=== PATIENT | female | born 1970 | race Two or more races ===

== ENCOUNTER 2023-02-11 17:10 | Inpatient (IN) | payer MEDICARE, OTHER ==
[~2023-02-11] VITALS: Ht 154.9 cm; Wt 68.0 kg
[2023-02-11 21:15] VITALS: BP 113/69; TEMP 97.8; O2SAT 100
[2023-02-11] MEDS ORDERED: COGENTIN PO (21:56)
[2023-02-11] MEDS ORDERED: LURA40TA PO (21:56)
[2023-02-11] MEDS ORDERED: HALO100A2 IM (21:56)
[2023-02-11] MEDS ORDERED: ATOR20TA PO (21:56)
[2023-02-11] MEDS ORDERED: SITA100T PO (21:56)
[2023-02-11] MEDS ORDERED: METF-440 PO (21:56)
[2023-02-11] MEDS ORDERED: OLAN5TAB3 PO (21:56)
[2023-02-11] MEDS ORDERED: clonazePAM 0.5 MG TABLET PO PRN (22:00)
[2023-02-11] MEDS ORDERED: MAGNESIUM HYDROXIDE 30 ML UDC PO PRN (22:00)
[2023-02-11] MEDS ORDERED: BLOOD SUGAR DIAGNOSTIC 1 EACH STRIP IN ONE (22:00)
[2023-02-11] MEDS ORDERED: TEMAZEPAM 7.5 MG CAPSULE PO PRN (22:00)
[2023-02-11] MEDS ORDERED: ACETAMINOPHEN 325 MG TABLET PO PRN (22:00)
[2023-02-11] MEDS ORDERED: MAG HYDROX/AL HYDROX/SIMETH 30 ML UDC PO PRN (22:00)
[2023-02-12 07:25] LABS: ALBUMIN 3.9 g/dL (3.4-5.0); BILIRUBIN,TOTAL 0.5 mg/dL (0.2-1.0); CALCIUM, SERUM 9.3 mg/dL (8.5-10.1); CREATININE 0.5 mg/dL (0.6-1.3); POTASSIUM 3.4 mmol/L (3.5-5.1); TOTAL PROTEIN, SERUM 7.9 g/dL (6.4-8.2)
[2023-02-12] MEDS ORDERED: BENZ1TAB7 PO (07:42)
[2023-02-12 08:00] VITALS: BP 121/65; TEMP 98.6; O2SAT 100
[2023-02-12] MEDS: BENZTROPINE MESYLATE (1 MG) 1 MG TABLET PO SCH (09:36)
[2023-02-12] MEDS: OLANZAPINE 5 MG TABLET PO SCH ×2 (12:07→17:16)
[2023-02-12] MEDS ORDERED: DEXTROSE 50%-WATER 50 ML DISP.SYRIN IV PRN (15:30)
[2023-02-12 16:00] VITALS: BP 143/72; TEMP 98; O2SAT 99
[2023-02-12] MEDS: METFORMIN 500 MG TABLET PO SCH (17:16)
[2023-02-12] MEDS: INSULIN REGULAR, HUMAN 100 UNIT/ML 3 ML VIAL SQ PRN ×2 (17:55→21:48)
[2023-02-12] MEDS: BLOOD SUGAR DIAGNOSTIC 1 EACH STRIP IN SCH ×2 (17:56→21:42)
[2023-02-12 21:32] VITALS: BP 105/67; TEMP 98.1; O2SAT 100
[2023-02-12] MEDS: ATORVASTATIN 10 MG TABLET PO SCH (21:35)
[2023-02-12] MEDS ORDERED: OLANZAPINE 5 MG TABLET PO SCH (22:00)
[2023-02-12] MEDS ORDERED: INSULIN GLARGINE, 100 UNIT/ML CARTRIDGE SQ SCH (22:00)
[2023-02-13] MEDS: BLOOD SUGAR DIAGNOSTIC 1 EACH STRIP IN SCH ×4 (08:30→21:47)
[2023-02-13] MEDS: OLANZAPINE 5 MG TABLET PO SCH ×2 (08:31→17:19)
[2023-02-13] MEDS: BENZTROPINE MESYLATE (1 MG) 1 MG TABLET PO SCH (08:31)
[2023-02-13] MEDS: METFORMIN 500 MG TABLET PO SCH ×2 (08:31→17:19)
[2023-02-13] MEDS: LINAGLIPTIN 5 MG TABLET PO SCH (08:31)
[2023-02-13 09:27] VITALS: BP 108/70; TEMP 98.7; O2SAT 100
[2023-02-13 16:00] VITALS: BP 140/69; TEMP 97.9; O2SAT 99
[2023-02-13 20:27] VITALS: BP 118/70; TEMP 98.1; O2SAT 100
[2023-02-13] MEDS: ATORVASTATIN 10 MG TABLET PO SCH (21:33)
[2023-02-13] MEDS: INSULIN GLARGINE, 100 UNIT/ML CARTRIDGE SQ SCH (21:49)
[2023-02-13] MEDS: INSULIN REGULAR, HUMAN 100 UNIT/ML 3 ML VIAL SQ PRN (21:51)
[2023-02-14] MEDS: BLOOD SUGAR DIAGNOSTIC 1 EACH STRIP IN SCH ×4 (07:44→21:35)
[2023-02-14 08:00] VITALS: BP 130/74; TEMP 97.5; O2SAT 99
[2023-02-14] MEDS: LINAGLIPTIN 5 MG TABLET PO SCH (08:25)
[2023-02-14] MEDS: BENZTROPINE MESYLATE (1 MG) 1 MG TABLET PO SCH (08:25)
[2023-02-14] MEDS: OLANZAPINE 5 MG TABLET PO SCH ×2 (08:25→16:09)
[2023-02-14] MEDS: METFORMIN 500 MG TABLET PO SCH ×2 (08:25→16:09)
[2023-02-14 16:00] VITALS: BP 117/67; TEMP 98.1; O2SAT 100
[2023-02-14 20:00] VITALS: BP 139/79; TEMP 97.5; O2SAT 100
[2023-02-14] MEDS: ATORVASTATIN 10 MG TABLET PO SCH (21:34)
[2023-02-14] MEDS: INSULIN GLARGINE, 100 UNIT/ML CARTRIDGE SQ SCH (21:35)
[2023-02-15] MEDS: BLOOD SUGAR DIAGNOSTIC 1 EACH STRIP IN SCH ×4 (07:30→21:38)
[2023-02-15 08:00] VITALS: BP 116/66; TEMP 97.8; O2SAT 99
[2023-02-15] MEDS: BENZTROPINE MESYLATE (1 MG) 1 MG TABLET PO SCH (08:15)
[2023-02-15] MEDS: OLANZAPINE 5 MG TABLET PO SCH ×2 (08:15→21:37)
[2023-02-15] MEDS: LINAGLIPTIN 5 MG TABLET PO SCH (08:15)
[2023-02-15] MEDS: METFORMIN 500 MG TABLET PO SCH ×3 (08:15→17:43)
[2023-02-15 16:00] VITALS: BP 134/72; TEMP 97.8; O2SAT 100
[2023-02-15 20:00] VITALS: BP 111/79; TEMP 98; O2SAT 100
[2023-02-15] MEDS: ATORVASTATIN 10 MG TABLET PO SCH (21:36)
[2023-02-15] MEDS: INSULIN GLARGINE, 100 UNIT/ML CARTRIDGE SQ SCH (21:38)
[2023-02-16] MEDS: BLOOD SUGAR DIAGNOSTIC 1 EACH STRIP IN SCH ×4 (07:30→21:47)
[2023-02-16 08:00] VITALS: BP 115/65; TEMP 97.8; O2SAT 98
[2023-02-16] MEDS: METFORMIN 500 MG TABLET PO SCH ×3 (08:09→16:42)
[2023-02-16] MEDS: LINAGLIPTIN 5 MG TABLET PO SCH (08:09)
[2023-02-16] MEDS: BENZTROPINE MESYLATE (1 MG) 1 MG TABLET PO SCH (08:09)
[2023-02-16] MEDS: OLANZAPINE 5 MG TABLET PO SCH ×2 (08:09→21:48)
[2023-02-16 16:00] VITALS: BP 111/66; TEMP 97.9; O2SAT 98
[2023-02-16 20:00] VITALS: BP 121/69; TEMP 97.6; O2SAT 97
[2023-02-16] MEDS: ATORVASTATIN 10 MG TABLET PO SCH (21:48)
[2023-02-16] MEDS: INSULIN GLARGINE, 100 UNIT/ML CARTRIDGE SQ SCH (21:49)
[2023-02-17] MEDS: BLOOD SUGAR DIAGNOSTIC 1 EACH STRIP IN SCH ×4 (07:30→22:00)
[2023-02-17 08:00] VITALS: BP 105/61; TEMP 97.8; O2SAT 98
[2023-02-17] MEDS: OLANZAPINE 5 MG TABLET PO SCH ×2 (08:38→22:02)
[2023-02-17] MEDS: BENZTROPINE MESYLATE (1 MG) 1 MG TABLET PO SCH (08:39)
[2023-02-17] MEDS: METFORMIN 500 MG TABLET PO SCH ×2 (08:43→16:26)
[2023-02-17] MEDS: LINAGLIPTIN 5 MG TABLET PO SCH (08:43)
[2023-02-17 16:00] VITALS: BP 109/58; TEMP 97.8; O2SAT 100
[2023-02-17 20:19] VITALS: BP 107/56; TEMP 98.6; O2SAT 98
[2023-02-17] MEDS: INSULIN GLARGINE, 100 UNIT/ML CARTRIDGE SQ SCH (22:00)
[2023-02-17] MEDS: ATORVASTATIN 10 MG TABLET PO SCH (22:02)
[2023-02-18] MEDS: BLOOD SUGAR DIAGNOSTIC 1 EACH STRIP IN SCH ×4 (07:30→21:27)
[2023-02-18 08:00] VITALS: BP 119/68; TEMP 98.1; O2SAT 98
[2023-02-18] MEDS: LINAGLIPTIN 5 MG TABLET PO SCH (08:23)
[2023-02-18] MEDS: BENZTROPINE MESYLATE (1 MG) 1 MG TABLET PO SCH (08:23)
[2023-02-18] MEDS: OLANZAPINE 5 MG TABLET PO SCH ×2 (08:23→21:23)
[2023-02-18] MEDS: METFORMIN 500 MG TABLET PO SCH ×2 (08:23→17:00)
[2023-02-18 16:00] VITALS: BP 112/78; TEMP 98.1; O2SAT 99
[2023-02-18 19:46] VITALS: BP 115/78; TEMP 97.9; O2SAT 100
[2023-02-18] MEDS: ATORVASTATIN 10 MG TABLET PO SCH (21:23)
[2023-02-18] MEDS: INSULIN GLARGINE, 100 UNIT/ML CARTRIDGE SQ SCH (21:27)
[2023-02-19] MEDS: BLOOD SUGAR DIAGNOSTIC 1 EACH STRIP IN SCH ×4 (07:30→21:26)
[2023-02-19 08:00] VITALS: BP 124/70; TEMP 98.7; O2SAT 99
[2023-02-19] MEDS: OLANZAPINE 5 MG TABLET PO SCH ×2 (08:30→21:26)
[2023-02-19] MEDS: LINAGLIPTIN 5 MG TABLET PO SCH (08:30)
[2023-02-19] MEDS: METFORMIN 500 MG TABLET PO SCH ×2 (08:37→17:00)
[2023-02-19] MEDS: BENZTROPINE MESYLATE (1 MG) 1 MG TABLET PO SCH (08:38)
[2023-02-19 16:00] VITALS: BP 114/59; TEMP 98.1; O2SAT 100
[2023-02-19 20:14] VITALS: BP 114/70; TEMP 98.8; O2SAT 97
[2023-02-19] MEDS: INSULIN GLARGINE, 100 UNIT/ML CARTRIDGE SQ SCH (21:26)
[2023-02-19] MEDS: ATORVASTATIN 10 MG TABLET PO SCH (21:26)
[2023-02-20] MEDS: BLOOD SUGAR DIAGNOSTIC 1 EACH STRIP IN SCH ×4 (07:30→21:41)
[2023-02-20 08:00] VITALS: BP 107/63; TEMP 98.1; O2SAT 100
[2023-02-20] MEDS: BENZTROPINE MESYLATE (1 MG) 1 MG TABLET PO SCH (08:02)
[2023-02-20] MEDS: OLANZAPINE 5 MG TABLET PO SCH ×2 (08:03→21:27)
[2023-02-20] MEDS: METFORMIN 500 MG TABLET PO SCH ×2 (08:03→16:00)
[2023-02-20] MEDS: LINAGLIPTIN 5 MG TABLET PO SCH (08:03)
[2023-02-20 16:00] VITALS: BP 122/68; TEMP 97.7; O2SAT 98
[2023-02-20 20:16] VITALS: BP 125/69; TEMP 98.4; O2SAT 100
[2023-02-20] MEDS: ATORVASTATIN 10 MG TABLET PO SCH (21:27)
[2023-02-20] MEDS: INSULIN REGULAR, HUMAN 100 UNIT/ML 3 ML VIAL SQ PRN (21:43)
[2023-02-20] MEDS: INSULIN GLARGINE, 100 UNIT/ML CARTRIDGE SQ SCH (21:54)
[2023-02-21] MEDS: BLOOD SUGAR DIAGNOSTIC 1 EACH STRIP IN SCH (07:30)
[2023-02-21 08:00] VITALS: BP 129/70; TEMP 98.2; O2SAT 99
[2023-02-21] MEDS: METFORMIN 500 MG TABLET PO SCH (08:47)
[2023-02-21] MEDS: LINAGLIPTIN 5 MG TABLET PO SCH (08:47)
[2023-02-21] MEDS: OLANZAPINE 5 MG TABLET PO SCH (08:47)
[2023-02-21] MEDS: BENZTROPINE MESYLATE (1 MG) 1 MG TABLET PO SCH (08:53)
== END 2023-02-21 11:15 | disposition home or self-care (01) | DRG 885 ==
LOC: GPS 21:09
PROVIDERS: ADMIT Nurse Practitioner Psychiatric/Mental Health; ATTEND Nurse Practitioner Family
DX: F25.0 Schizoaffective disorder, bipolar type (principal); E11.65 Type 2 diabetes mellitus with hyperglycemia; F32.A Depression, unspecified; Z73.6 Limitation of activities due to disability; Z79.84 Long term (current) use of oral hypoglycemic drugs; Z79.899 Other long term (current) drug therapy; F29 Unspecified psychosis not due to a substance or known physiological condition; E78.5 Hyperlipidemia, unspecified; Z91.199 Patient's noncompliance with other medical treatment and regimen due to unspecified reason; Z91.148 Patient's other noncompliance with medication regimen for other reason; F41.9 Anxiety disorder, unspecified
CPT/HCPCS: 36415; 80053-TC; 80061-TC; 82962-TC; 87081-TC; J1815

== ENCOUNTER 2024-06-22 17:19 | Inpatient (IN) | payer MEDICARE, MEDICAID ==
[~2024-06-22] VITALS: Ht 152.4 cm; Wt 59.9 kg
[~2024-06-22 17:19] MED LIST: ATOR20TA PO; BENZ1TAB7 PO; HALO100A2 IM; LURA40TA PO; METF-440 PO; OLAN5TAB3 PO; SITA100T PO
[2024-06-22 18:07] LABS: BASOPHILS % (AUTO) 0.5 % (0.0-2.0); EOSINOPHILS # (AUTO) 0.1 K/uL (0.0-0.7); EOSINOPHILS % (AUTO) 0.8 % (0.0-6.0); HEMATOCRIT 32 % (33-45); HEMOGLOBIN 11.2 g/dL (11.5-14.8); LYMPHOCYTES # (AUTO) 1.9 K/uL (0.8-4.8); MEAN CORPUSCULAR HEMOGLOBIN 29 PG (26.0-33.0); MEAN CORPUSCULAR HGB CONC 35 g/dl (31.0-36.0); MEAN CORPUSCULAR VOLUME 83 fL (82-100); MONOCYTES # (AUTO) 0.5 K/uL (0.1-1.30); MONOCYTES % (AUTO) 6.9 % (2.0-12.0); NEUTROPHILS # (AUTO) 4.5 K/uL (1.8-8.9); NEUTROPHILS % (AUTO) 64.8 % (43.0-81.0); PLATELET COUNT (AUTO) 213 K/uL (150-450); RED BLOOD CELL COUNT(AUTO) 3.88 MIL/uL (4.0-5.2); RED CELL DISTRIBUTION WIDTH 12.6 % (11.5-15.0); WHITE BLOOD COUNT (AUTO) 6.9 K/uL (4.3-11.0)
[2024-06-22 18:27] LABS: CALCIUM, SERUM 9.1 mg/dL (8.5-10.1); CARBON DIOXIDE 26 mmol/L (21-32); CHLORIDE 102 mmol/L (98-107); CREATININE 0.6 mg/dL (0.6-1.3); GLUCOSE 166 mg/dL (74-106); POTASSIUM 4.1 mmol/L (3.5-5.1); SODIUM SERUM 135 mmol/L (136-145); UREA NITROGEN, BLOOD 12 mg/dL (7-18)
[2024-06-22 18:32] LABS: ALANINE AMINOTRANSFERASE 35 U/L (12-78); ALBUMIN 3.5 g/dL (3.4-5.0); ALCOHOL, BLOOD < 3 mg/dL (0-10); ALKALINE PHOSPHATASE 102 U/L (46-116); ASPARTATE AMINOTRANSFERASE 34 U/L (15-37); BILIRUBIN,DIRECT 0.1 mg/dL (0.0-0.2); BILIRUBIN,TOTAL 0.2 mg/dL (0.2-1.0); TOTAL PROTEIN, SERUM 7.7 g/dL (6.4-8.2)
[2024-06-22 18:33] LABS: ACETAMINOPHEN 0 ug/ml (10-30); SALICYLATE 1.4 mg/dL (2.8-20.0)
[2024-06-22 18:35] LABS: APPEARANCE,URINE CLEAR (CLEAR); BILIRUBIN,URINE NEGATIVE (NEGATIVE); BLOOD, URINE NEGATIVE Ery/uL (NEGATIVE); COLOR,URINE YELLOW (YELLOW); KETONES,URINE NEGATIVE (NEGATIVE); LEUKOCYTE ESTERASE ,URINE NEGATIVE (NEGATIVE); NITRITE, URINE NEGATIVE (NEGATIVE); PH,URINE 5.5 (5.0-8.0); PROTEIN,URINE NEGATIVE (NEGATIVE); UGLUCOSE 1+ mg/dL (NEGATIVE); UROBILINOGEN,URINE 0.2 EU/dL (0.2)
[2024-06-22 18:46] LABS: AMPHETAMINE, URINE NEGATIVE (NEGATIVE); BARBITURATE, URINE NEGATIVE (NEGATIVE); BENZODIAZEPINE, URINE NEGATIVE (NEGATIVE); CANNABINOID, URINE NEGATIVE (NEGATIVE); COCCAINE, URINE NEGATIVE (NEGATIVE); OPIATE, URINE NEGATIVE (NEGATIVE); PHENCYCLIDINE SCREEN,URINE NEGATIVE (NEGATIVE)
[2024-06-22 19:02] LABS: ADD URINE CULTURE NO; BACTERIA,URINE Few /HPF (None Seen); RBC,URINE 0-2 /HPF (0-2); SQUAMOUS EPITHELIAL CELL,UR Many /HPF (None Seen); WBC,URINE 0-2 /HPF (0-3)
[2024-06-22 19:05] LABS: PREGNANCY TEST URINE QUAL NEGATIVE (NEGATIVE)
[2024-06-22 23:42] VITALS: O2SAT 99
[2024-06-23] MEDS ORDERED: MAGNESIUM HYDROXIDE 30 ML UDC PO PRN (01:00)
[2024-06-23] MEDS ORDERED: LORAZEPAM 0.5 MG TABLET PO PRN (01:00)
[2024-06-23] MEDS ORDERED: TEMAZEPAM 7.5 MG CAPSULE PO PRN (01:00)
[2024-06-23] MEDS: BLOOD SUGAR DIAGNOSTIC 1 EACH STRIP IN ONE (01:11)
[2024-06-23] MEDS ORDERED: LISI-768 PO (02:34)
[2024-06-23] MEDS ORDERED: GLIP10TA11 PO (02:38)
[2024-06-23] MEDS ORDERED: METF-442 PO (02:42)
[2024-06-23 08:00] VITALS: BP 155/79; TEMP 97.7; O2SAT 98
[2024-06-23] MEDS ORDERED: MAGN400O6 PO (08:48)
[2024-06-23] MEDS ORDERED: ACET325T53 PO (08:48)
[2024-06-23] MEDS ORDERED: MAG-55 PO (08:48)
[2024-06-23] MEDS: BENZTROPINE MESYLATE (2MG/2ML) 2 MG/2 ML AMPUL IM ONE (11:03)
[2024-06-23] MEDS: HALOPERIDOL LACTATE INJ 5 MG/ML VIAL IM ONE (11:03)
[2024-06-23] MEDS: LORAZEPAM INJ 2 MG/ML VIAL IM ONE (11:03)
[2024-06-23] MEDS: OXCARBAZEPINE 150 MG TABLET PO SCH (13:00)
[2024-06-23 16:18] VITALS: BP 92/50; TEMP 98.9; O2SAT 99
[2024-06-23] MEDS: HALOPERIDOL 5 MG TABLET PO SCH (17:00)
[2024-06-23] MEDS ORDERED: LISINOPRIL (5MG) 5 MG TABLET PO SCH (18:00)
[2024-06-23] MEDS ORDERED: INSULIN REGULAR, HUMAN 100 UNIT/ML 3 ML VIAL SQ PRN (18:00)
[2024-06-23] MEDS ORDERED: DEXTROSE 50%-WATER 50 ML DISP.SYRIN IV PRN (18:00)
[2024-06-23 20:00] VITALS: BP 151/80; TEMP 98.7; O2SAT 98
[2024-06-23] MEDS: BLOOD SUGAR DIAGNOSTIC 1 EACH STRIP IN SCH (21:11)
[2024-06-24] MEDS: HALOPERIDOL LACTATE INJ 5 MG/ML VIAL IM ONE (06:10)
[2024-06-24] MEDS: LORAZEPAM INJ 2 MG/ML VIAL IM ONE (06:10)
[2024-06-24] MEDS: BENZTROPINE MESYLATE (2MG/2ML) 2 MG/2 ML AMPUL IM ONE (06:10)
[2024-06-24 08:00] VITALS: BP 123/85; TEMP 98.7; O2SAT 99
[2024-06-24] MEDS: LORAZEPAM INJ 2 MG/ML VIAL IM STA (09:53)
[2024-06-24] MEDS: OLANZAPINE 10 MG VIAL IM STA (09:53)
[2024-06-24 16:00] VITALS: BP 129/61; TEMP 97.9; O2SAT 99
[2024-06-24] MEDS: HALOPERIDOL 5 MG TABLET PO SCH (17:00)
[2024-06-24] MEDS: LORAZEPAM 0.5 MG TABLET PO PRN (21:42)
[2024-06-24] MEDS: MAG HYDROX/AL HYDROX/SIMETH 30 ML UDC PO PRN (22:02)
[2024-06-25 08:00] VITALS: BP 126/96; TEMP 98; O2SAT 98
[2024-06-25] MEDS: OXCARBAZEPINE 150 MG TABLET PO SCH ×2 (13:33→16:55)
[2024-06-25 16:00] VITALS: BP 117/87; TEMP 98; O2SAT 98
[2024-06-25] MEDS: glipiZIDE 5 MG TABLET PO SCH (16:55)
[2024-06-25] MEDS: METFORMIN 500 MG TABLET PO SCH (17:03)
[2024-06-25 20:00] VITALS: BP 136/92; TEMP 98.2; O2SAT 97
[2024-06-25] MEDS: OLANZAPINE 10 MG TABLET PO SCH (21:09)
[2024-06-26 08:00] VITALS: BP 126/76; TEMP 98.2; O2SAT 100
[2024-06-26 16:00] VITALS: BP 132/68; TEMP 98; O2SAT 98
[2024-06-26 20:00] VITALS: BP 129/78; TEMP 98; O2SAT 99
[2024-06-27 08:00] VITALS: BP 145/68; TEMP 98; O2SAT 97
[2024-06-27 16:00] VITALS: BP 160/90; TEMP 98; O2SAT 100
[2024-06-27 21:27] VITALS: BP 142/74; TEMP 98.1; O2SAT 96
[2024-06-28 16:00] VITALS: BP 131/57; TEMP 98; O2SAT 100
[2024-06-28 20:33] VITALS: BP 152/80; TEMP 98; O2SAT 98
[2024-06-29 08:00] VITALS: BP 147/81; TEMP 97.9; O2SAT 99
[2024-06-29 15:47] VITALS: BP 127/74; TEMP 98.7; O2SAT 99
[2024-06-29 20:00] VITALS: BP 132/72; TEMP 98.1; O2SAT 97
[2024-06-30 08:00] VITALS: BP 136/75; TEMP 98.9; O2SAT 99
[2024-06-30] MEDS: OLANZAPINE 10 MG TABLET PO SCH (13:47)
[2024-06-30 16:00] VITALS: BP 154/98; TEMP 98.3; O2SAT 98
[2024-06-30 20:17] VITALS: BP 151/93; TEMP 98; O2SAT 98
[2024-07-01] MEDS: TEMAZEPAM 7.5 MG CAPSULE PO PRN (00:33)
[2024-07-01 08:00] VITALS: BP 130/76; TEMP 97.9; O2SAT 100
[2024-07-01 16:31] VITALS: BP 145/85; TEMP 98; O2SAT 98
[2024-07-01 20:00] VITALS: BP 138/79; TEMP 98.2; O2SAT 98
[2024-07-02 08:00] VITALS: BP 135/73; TEMP 98; O2SAT 99
[2024-07-02] MEDS: hydrALAZINE HCL 10 MG TABLET PO ONE (13:09)
[2024-07-02 16:00] VITALS: BP 129/63; TEMP 97.7; O2SAT 100
[2024-07-02] MEDS ORDERED: KETOROLAC TROMETHAMINE 10 MG TABLET PO PRN (18:00)
[2024-07-02 20:00] VITALS: BP 129/75; TEMP 97.7; O2SAT 100
[2024-07-03] MEDS: GUAIFENESIN/D-METHORPHAN HB 5 ML UDC PO PRN (01:01)
[2024-07-03 08:00] VITALS: BP_SYST 142; BP_SYST 172; BP_DIAS 64; TEMP 97.6; O2SAT 98
[2024-07-03 16:00] VITALS: BP 128/75; TEMP 98; O2SAT 100
[2024-07-03 20:09] VITALS: BP 145/71; TEMP 98; O2SAT 98
[2024-07-04 08:00] VITALS: BP 136/71; TEMP 97.6; O2SAT 95
[2024-07-04 16:00] VITALS: BP 137/78; TEMP 98; O2SAT 96
[2024-07-04 20:24] VITALS: BP 121/71; TEMP 98.2; O2SAT 98
[2024-07-05 08:00] VITALS: BP 125/71; TEMP 97.8; O2SAT 99
[2024-07-05 16:09] VITALS: BP 132/75; TEMP 98; O2SAT 100
[2024-07-05 23:05] VITALS: BP 130/72; TEMP 98.1; O2SAT 99
[2024-07-06] MEDS: ACETAMINOPHEN 325 MG TABLET PO PRN (04:50)
[2024-07-06 08:00] VITALS: BP 140/87; TEMP 97.8; O2SAT 100
[2024-07-06 15:20] VITALS: BP 148/88; TEMP 97.7; O2SAT 100
[2024-07-06 20:17] VITALS: BP 133/86; TEMP 98.5; O2SAT 98
[2024-07-07 08:00] VITALS: BP 152/91; TEMP 98; O2SAT 97
== END 2024-07-07 14:15 | DRG 885 ==
LOC: ER 18:01 → GPS 06-23 00:19
PROVIDERS: ADMIT Psychiatry & Neurology Psychosomatic Medicine; ATTEND Nurse Practitioner Acute Care
DX: F25.0 Schizoaffective disorder, bipolar type (principal); E78.5 Hyperlipidemia, unspecified; E11.9 Type 2 diabetes mellitus without complications; F29 Unspecified psychosis not due to a substance or known physiological condition; F39 Unspecified mood [affective] disorder; Z79.84 Long term (current) use of oral hypoglycemic drugs; Z91.148 Patient's other noncompliance with medication regimen for other reason; Z91.199 Patient's noncompliance with other medical treatment and regimen due to unspecified reason; M94.0 Chondrocostal junction syndrome [Tietze]
CPT/HCPCS: 36415; 71045-TC; 80048-TC; 80076-TC; 81001; 84484-TC; 84703-TC; 85025-TC; 87081-TC; G0480; J0515; J1630; J1815; J2060; J3490